=== PATIENT | female | born 1980 | race American Indian/Alaskan Native ===

== ENCOUNTER 2016-05-14 19:35 | Emergency (ER) | payer OTHER ==
[2016-05-14 20:11] VITALS: BP 96/61
[2016-05-14 20:54] LABS: Basophils % (Auto) 0.3 % (0.0-1.8); Eosinophils % (Auto) 0.2 % (0.0-4.3); Hematocrit 23.7 % (30.3-42.9); Mean Corpuscular HGB Conc 34 % (30-34); Mean Corpuscular Hemoglobin 29 pg (28-32); Mean Corpuscular Volume 85 fl (79-97); Platelet Count 251 K/mm3 (140-440); Red Blood Count 2.78 M/mm3 (3.65-5.03); Red Cell Distribution Width 18.8 % (13.2-15.2); White Blood Count 9.2 K/mm3 (4.5-11.0)
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
[2016-05-14 22:05] LABS: Alanine Aminotransferase 20 units/L (7-56); Albumin 3.5 g/dL (3.9-5); Alkaline Phosphatase 135 units/L (35-129); Bilirubin,Total < 0.2 mg/dL (0.1-1.2); Blood Urea Nitrogen 8 mg/dL (7-17); Calcium 8.5 mg/dL (8.4-10.2); Carbon Dioxide 21 mmol/L (22-30); Chloride 100.2 mmol/L (98-107); Glucose 86 mg/dL (65-100); Lipase 26 units/L (13-60); Potassium 4.5 mmol/L (3.6-5.0); Sodium 137 mmol/L (137-145)
[2016-05-14 22:13] LABS: Anion Gap 20 mmol/L
[2016-05-14 22:17] LABS: Bacteria,Urine 3+ /HPF (Negative); Bilirubin,Urine NEG (Negative); Blood,Urine LG (Negative); Ketones,Urine TR mg/dL (Negative); Leukocyte Esterase,Urine TR (Negative); Mucus,Urine 3+ /HPF; Nitrite,Urine NEG (Negative)
[2016-05-14 22:26] LABS: RBC,Urine > 182.0 /HPF (0.0-6.0)
== END 2016-05-14 21:57 | disposition home or self-care (01) ==
LOC: ED 19:35
DX: O03.9 Complete or unspecified spontaneous abortion without complication (principal); O99.331 Smoking (tobacco) complicating pregnancy, first trimester; F12.10 Cannabis abuse, uncomplicated; Z3A.14 14 weeks gestation of pregnancy
CPT/HCPCS: 36415; 80053; 81001; 81025; 83690; 85025; 86900; 86901; 88305

== ENCOUNTER 2016-05-20 21:23 | Inpatient (IN) | payer SELFPAY ==
[2016-05-20 23:51] LABS: Basophils % (Auto) 0.3 % (0.0-1.8); Eosinophils % (Auto) 0.2 % (0.0-4.3); Hematocrit 20.8 % (30.3-42.9); Hemoglobin 6.7 gm/dl (10.1-14.3); Mean Corpuscular HGB Conc 32 % (30-34); Mean Corpuscular Hemoglobin 28 pg (28-32); Mean Corpuscular Volume 87 fl (79-97); Platelet Count 371 K/mm3 (140-440); Red Blood Count 2.38 M/mm3 (3.65-5.03); White Blood Count 6.8 K/mm3 (4.5-11.0)
[2016-05-21 00:02] LABS: INR 1.07 (0.87-1.13)
[2016-05-21 00:03] LABS: Partial Thromboplastin Time 29.4 Sec. (24.2-36.6)
[2016-05-21 00:12] LABS: Anion Gap 19 mmol/L; Blood Urea Nitrogen 4 mg/dL (7-17); Calcium 8.7 mg/dL (8.4-10.2); Carbon Dioxide 25 mmol/L (22-30); Chloride 102.7 mmol/L (98-107); Glucose 93 mg/dL (65-100); Potassium 4.2 mmol/L (3.6-5.0); Sodium 142 mmol/L (137-145)
--- NOTE | 2016-05-21 01:06 | Ultrasound Report ---
FINAL REPORT PROCEDURE: US BREAST right LIMITED TECHNIQUE: eal-time sonography in multiple planes of the RIGHT breast was performed with image documentation; limited. HISTORY: PAIN/SWELLING, trauma COMPARISON: No prior studies are available for comparison. FINDINGS: RIGHT breast: Ultrasound evaluation of right breast shows some diffuse mixed echogenicity within breast tissue along the lateral aspect of the right breast. This is consistent with contusion of the soft tissues in this region. No formed abscess is seen. There is a area of fluid and some septations in the lower aspect of the areola, this measures 4.7 x 3.5 x 1.7 centimeters. This area could represent a resolving region of contusion/hematoma. Other etiologies are not entirely excluded. This patient has no previous breast imaging studies available for review. This patient will need further follow-up which should include close clinical observation. Further imaging of the right breast to include mammography and perhaps repeat ultrasound may be required for full workup of the right breast after resolution of the patient's soft tissue contusion. IMPRESSION: Soft tissue contusion involving the lateral aspect of the right breast is identified as discussed. There is a formed area of mixed echogenicity containing some fluid in the lower aspect of the areola which may represent resolving contusion/hematoma. Other etiologies are not excluded on the basis of this study. A plan for further imaging of the right breast should include mammography and perhaps repeat ultrasound after resolution of the patient's soft tissue contusion. ACR BI-RADS category 0 incomplete imaging of the right breast as described.
[2016-05-21] MEDS ORDERED: NACL 0.9% 500 ML 500 ML IV ONE ×2 (07:41→09:39)
[2016-05-21] MEDS ORDERED: ZOSYN/NS 3.375GM/50ML 50 ML IV ONE (07:43)
[2016-05-21] MEDS ORDERED: VANCOMYCIN PHARMACY TO DOSE IV SCH (08:00)
--- NOTE | 2016-05-21 08:10 | Emergency Department Report ---
ED General Adult HPI - General Chief complaint: Pain General Stated complaint: ENLARGED LEFT BREAST Time Seen by Provider: 05/21/16 07:11 Source: patient Mode of arrival: Ambulatory Limitations: No Limitations - History of Present Illness Initial comments: The patient was here on 05/14/2016 for an apparent complete . She was cared for by the emergency physician and released. She states that on 2016, she was sweeping in her living room when she got weak and dizzy and fell injuring her breast on the end of a coffee table. She denies any prolonged loss of consciousness. He states that she has been generally weak and does have some dyspnea on exertion only she is not dyspneic at rest. She complains of no chest pain. She denies fever and chills. She states that her breast has gotten somewhat red since her injury. She did not follow-up with an OB doctor. She had an approximate 7 week gestation. He is not complaining of subsequent vaginal bleeding or discharge. He has been chronically anemic in the past. -: Sudden, days(s) (the fifth) Location: chest (r breast) Radiation: non-radiation Quality: other (soreness) Consistency: now resolved Improves with: none Worsens with: none Associated Symptoms: weakness Treatments Prior to Arrival: none - Related Data Home Medications Medication Instructions Recorded Confirmed Last Taken No Known Home Medications [No 05/21/16 05/21/16 Unknown Reported Home Medications] Allergies Allergy/AdvReac Type Severity Reaction Status Date / Time No Known Allergies Allergy Verified 05/06/15 21:22 ED Review of Systems ROS: Stated complaint: ENLARGED LEFT BREAST Other details as noted in HPI Constitutional: other (presyncopal episode). denies: chills, fever Eyes: denies: eye pain, eye discharge, vision change ENT: denies: ear pain, throat pain Respiratory: denies: cough, shortness of breath, wheezing Cardiovascular: denies: chest pain, palpitations Endocrine: no symptoms reported Gastrointestinal: denies: abdominal pain, nausea, diarrhea Genitourinary: denies: urgency, dysuria, discharge Musculoskeletal: denies: back pain, joint swelling, arthralgia Skin: denies: rash, lesions Neurological: denies: headache, weakness, paresthesias Psychiatric: denies: anxiety, depression Hematological/Lymphatic: denies: easy bleeding, easy bruising ED Past Medical Hx - Past Medical History Previous Medical History?: Yes Additional medical history: MISSCARRIAGE - Surgical History Past Surgical History?: No - Social History Smoking Status: Current Every Day Smoker Substance Use Type: Alcohol - Medications Home Medications: Home Medications Medication Instructions Recorded Confirmed Last Taken Type No Known Home Medications [No 05/21/16 05/21/16 Unknown History Reported Home Medications] ED Physical Exam - General Limitations: No Limitations General appearance: alert, in no apparent distress - Head Head exam: Present: atraumatic, normocephalic - Eye Eye exam: Present: normal appearance, PERRL, EOMI, other (conjunctival pallor). Absent: scleral icterus - ENT ENT exam: Present: normal exam, mucous membranes moist - Neck Neck exam: Present: normal inspection. Absent: tenderness, meningismus - Respiratory Respiratory exam: Present: normal lung sounds bilaterally. Absent: respiratory distress - Cardiovascular Cardiovascular Exam: Present: regular rate, normal rhythm. Absent: systolic murmur, diastolic murmur, rubs, gallop - GI/Abdominal GI/Abdominal exam: Present: soft, normal bowel sounds. Absent: distended, tenderness, guarding, rebound, rigid - Extremities Exam Extremities exam: Present: normal inspection - Back Exam Back exam: Present: normal inspection - Neurological Exam Neurological exam: Present: alert, oriented X3, CN II-XII intact. Absent: motor sensory deficit - Psychiatric Psychiatric exam: Present: normal affect, normal mood - Skin Skin exam: Present: warm, dry, intact, ecchymosis (ecchymosis and erythema of the right breast. Apparent hematoma.). Absent: rash ED Course Vital Signs 05/20/16 05/21/16 05/21/16 23:05 02:07 06:37 Temperature 98.7 F 98.6 F 98.0 F Pulse Rate 115 H 115 H 101 H Respiratory 18 16 12 Rate Blood Pressure 122/75 Blood Pressure 111/67 105/72 [Left] O2 Sat by Pulse 100 100 100 Oximetry - Reevaluation(s) Reevaluation #1: The patient has symptomatic anemia with a near syncopal episode or syncope. I will transfuse her 1 unit of blood. Antibiotic coverage for her breast cellulitis/hematoma. Noted by Dr. Caal to the hospitalist service. He probably has some chronic liver disease as well. 02/11/17 08:13 ED Medical Decision Making - Lab Data Result diagrams: 05/20/16 23:40 05/20/16 23:40 Laboratory Results - last 24 hr 05/20/16 05/20/16 05/20/16 23:40 23:40 23:40 WBC 6.8 RBC 2.38 L Hgb 6.7 L Hct 20.8 L MCV 87 MCH 28 MCHC 32 RDW 19.0 H Plt Count 371 Lymph % (Auto) 30.4 [place] % (Auto) 10.3 H Eos % (Auto) 0.2 Baso % (Auto) 0.3 Lymph # 2.1 [place] # 0.7 Eos # 0.0 Baso # 0.0 Seg Neutrophils % 58.8 Seg Neutrophils # 4.0 PT 13.8 INR 1.07 APTT 29.4 Sodium 142 Potassium 4.2 Chloride 102.7 Carbon Dioxide 25 Anion Gap 19 BUN 4 L Creatinine 0.5 L Estimated GFR > 60 BUN/Creatinine Ratio 8.00 Glucose 93 Calcium 8.7 Critical care attestation.: If time is entered above; I have spent that time in minutes in the direct care of this critically ill patient, excluding procedure time. ED Disposition Clinical Impression: Symptomatic anemia, Near syncope, Cellulitis of breast, Breast hematoma Disposition: OP ADMITTED IP TO THIS HOSP Is pt being admited?: Yes Does the pt Need Aspirin: No Condition: Stable Referrals: PRIMARY CARE, [Primary Care Provider] - 3-5 Days Time of Disposition: 08:15
[2016-05-21 08:31] LABS: Alanine Aminotransferase 23 units/L (7-56); Albumin 3.5 g/dL (3.9-5); Alkaline Phosphatase 184 units/L (35-129); Bilirubin,Total < 0.2 mg/dL (0.1-1.2); Total Protein 7.1 g/dL (6.3-8.2)
[2016-05-21 08:32] LABS: Bilirubin,Direct < 0.2 mg/dL (0-0.2)
[2016-05-21] MEDS: ZOSYN/NS 4.5GM/100ML 4.5 GM/100 ML VIAL IV SCH ×2 (09:15→16:36)
--- NOTE | 2016-05-21 09:32 | History and Physical Report ---
History of Present Illness Date of examination: 05/21/16 History of present illness: The patient was here on 05/14/2016 for an apparent complete . She was cared for by the emergency physician and released. She states that on 2016, she was sweeping in her living room when she got weak and dizzy and fell injuring her breast on the end of a coffee table. She denies any prolonged loss of consciousness. He states that she has been generally weak and does have some dyspnea on exertion only she is not dyspneic at rest. She complains of no chest pain. She denies fever and chills. She states that her breast has gotten somewhat red since her injury. She did not follow-up with an OB doctor. She had an approximate 7 week gestation. He is not complaining of subsequent vaginal bleeding or discharge. He has been chronically anemic in the past. Past History Past Medical History: other (several miscarriages) Medications and Allergies Allergies Allergy/AdvReac Type Severity Reaction Status Date / Time No Known Allergies Allergy Verified 05/06/15 21:22 Home Medications Medication Instructions Recorded Confirmed Last Taken Type No Known Home Medications [No 05/21/16 05/21/16 Unknown History Reported Home Medications] Active Meds: Active Medications Piperacillin Sod/Tazobactam Sod (Zosyn/Ns 4.5gm/100ml) 4.5 gm in 100 mls @ 100 mls/hr IV Q8H [facility] Last Admin: 05/21/16 09:15 Dose: 100 mls/hr Vancomycin HCl (Vancomycin/Ns 1 Gm/250 Ml) 1 gm in 250 mls @ 166.667 mls/hr IV Q12H [facility] Vancomycin HCl (Vancomycin Pharmacy To Dose) 1 each IV PKCONSULT GEMA PRN Reason: Protocol Review of Systems Breasts: change in shape, swelling, pain Exam - Constitutional Vitals: Temp Pulse Resp BP Pulse Ox 98.0 F 101 H 12 105/72 100 05/21/16 06:37 05/21/16 06:37 05/21/16 06:37 05/21/16 06:37 05/21/16 06:37 General appearance: Present: mild distress - EENT Eyes: Present: PERRL, EOM intact ENT: hearing intact, clear oral mucosa - Neck Neck: Present: supple, normal ROM - Respiratory Respiratory effort: normal Respiratory: bilateral: CTA - Cardiovascular Rhythm: regular Heart Sounds: Present: S1 & S2 - Extremities Extremities: no ischemia, No edema - Abdominal General gastrointestinal: Present: soft, non-tender, non-distended, normal bowel sounds Female genitourinary: Present: other (right breast with swelling and bruising/ tenderness) Results - Labs CBC & Chem 7: 05/20/16 23:40 05/20/16 23:40 Labs: Laboratory Last Values WBC 6.8 K/mm3 (4.5-11.0) 05/20/16 23:40 RBC 2.38 M/mm3 (3.65-5.03) L 05/20/16 23:40 Hgb 6.7 gm/dl (10.1-14.3) L 05/20/16 23:40 Hct 20.8 % (30.3-42.9) L 05/20/16 23:40 MCV 87 fl (79-97) 05/20/16 23:40 MCH 28 pg (28-32) 05/20/16 23:40 MCHC 32 % (30-34) 05/20/16 23:40 RDW 19.0 % (13.2-15.2) H 05/20/16 23:40 Plt Count 371 K/mm3 (140-440) 05/20/16 23:40 Lymph % (Auto) 30.4 % (13.4-35.0) 05/20/16 23:40 [place] % (Auto) 10.3 % (0.0-7.3) H 05/20/16 23:40 Eos % (Auto) 0.2 % (0.0-4.3) 05/20/16 23:40 Baso % (Auto) 0.3 % (0.0-1.8) 05/20/16 23:40 Lymph # 2.1 K/mm3 (1.2-5.4) 05/20/16 23:40 [place] # 0.7 K/mm3 (0.0-0.8) 05/20/16 23:40 Eos # 0.0 K/mm3 (0.0-0.4) 05/20/16 23:40 Baso # 0.0 K/mm3 (0.0-0.1) 05/20/16 23:40 Seg Neutrophils % 58.8 % (40.0-70.0) 05/20/16 23:40 Seg Neutrophils # 4.0 K/mm3 (1.8-7.7) 05/20/16 23:40 PT 13.8 Sec. (12.2-14.9) 05/20/16 23:40 INR 1.07 (0.87-1.13) 05/20/16 23:40 APTT 29.4 Sec. (24.2-36.6) 05/20/16 23:40 Sodium 142 mmol/L (137-145) 05/20/16 23:40 Potassium 4.2 mmol/L (3.6-5.0) 05/20/16 23:40 Chloride 102.7 mmol/L (98-107) 05/20/16 23:40 Carbon Dioxide 25 mmol/L (22-30) 05/20/16 23:40 Anion Gap 19 mmol/L 05/20/16 23:40 BUN 4 mg/dL (7-17) L 05/20/16 23:40 Creatinine 0.5 mg/dL (0.7-1.2) L 05/20/16 23:40 Estimated GFR > 60 ml/min 05/20/16 23:40 BUN/Creatinine Ratio 8.00 % 05/20/16 23:40 Glucose 93 mg/dL (65-100) 05/20/16 23:40 Lactic Acid 2.3 mmol/L (0.7-2.0) H* 05/21/16 07:52 Calcium 8.7 mg/dL (8.4-10.2) 05/20/16 23:40 Total Bilirubin < 0.2 mg/dL (0.1-1.2) 05/21/16 07:52 Direct Bilirubin < 0.2 mg/dL (0-0.2) 05/21/16 07:52 Indirect Bilirubin 0.0 mg/dL 05/21/16 07:52 AST 52 units/L (5-40) H 05/21/16 07:52 ALT 23 units/L (7-56) 05/21/16 07:52 Alkaline Phosphatase 184 units/L (35-129) H 05/21/16 07:52 Total Protein 7.1 g/dL (6.3-8.2) 05/21/16 07:52 Albumin 3.5 g/dL (3.9-5) L 05/21/16 07:52 Albumin/Globulin Ratio 1.0 % 05/21/16 07:52 Assessment and Plan - Patient Problems (1) Breast hematoma Current Visit: Yes Status: Acute Plan to address problem: Patient had a syncopal episode and fell flat on right breast. Patient sustained no breast hematoma with marked swelling. This is been over a week so we will try heat to the breast at this time. Continue to follow clinically. Ultrasound of breath showed large hematoma (2) Cellulitis of breast Current Visit: Yes Status: Acute Plan to address problem: We'll start IV antibiotics (3) Symptomatic anemia Current Visit: Yes Status: Acute Plan to address problem: Symptomatic anemia possibly caused syncopal episode. We will transfuse 2 units of packed red cells and follow clinically. Patient had evacuation of the uterus by the ER physician. Nonviable fetus was found during evacuation (4) Near syncope Current Visit: Yes Status: Acute Plan to address problem: Possibly due to symptomatic anemia. Patient had evacuation of her uterus a few days prior to the syncopal episode by the ER physician. Patient had a nonviable fetus in the uterus for which it was evacuated
[2016-05-21] MEDS ORDERED: TYLENOL PO PRN (09:34)
[2016-05-21] MEDS ORDERED: MILK OF MAGNESIA PO PRN (09:34)
[2016-05-21] MEDS ORDERED: ZOFRAN IV PRN (09:34)
[2016-05-21] MEDS ORDERED: MORPHINE IV PRN (09:34)
[2016-05-21] MEDS ORDERED: DULCOLAX PR PRN (09:34)
[2016-05-21] MEDS: VANCOMYCIN/NS 1 GM/250 ML 1 GM/250 ML BAG IV SCH ×2 (10:30→21:39)
[2016-05-21] MEDS ORDERED: NACL 0.9% 1000 ML 1,000 ML ONE ×2 (12:09→15:24)
[2016-05-21] MEDS: NACL 0.9% 1000 ML 1,000 ML IV SCH (14:56)
[2016-05-21] MEDS ORDERED: ATIVAN IV PRN (19:02)
--- NOTE | 2016-05-21 23:53 | Admit Criteria Form ---
Admission Criteria Documentation: ANEMIA, IRON DEFICIENCY OR UNSPECIFIED Clinical Indications for Inpatient Care (Place 'X' for any and all applicable criteria): Admission is indicated for ANY ONE of the following(1)(2)(3)(4)(5)(6)(7): [X] I. Inpatient admission required rather than observation care (Also use Anemia, Iron Deficiency or Unspecified: Observation Care guideline as appropriate) because of ANY ONE of the following: [] a) Hemodynamic instability that is severe or persistent [] b) Active bleeding that cannot be rapidly controlled [] c) CVS symptoms (i.e., dyspnea, chest pain, heart failure) that are severe or persistent [X] d) Neurologic symptoms (i.e., cognitive impairment, recurrent syncope or near syncope) that are severe or persistent [] e) Cardiac arrhythmias of immediate concern [] f) Acute peripheral ischemia (e.g., pulseless, cool, mottled, or cyanotic extremity) [] g) High-risk low platelet count [] h) Acute renal failure [] i) Ongoing transfusion for blood loss (greater than 2 units) [] j) IV fluid to replace significant ongoing (eg, >24 hours) losses (> 3 L/m2 per day) [] k) Pulmonary artery catheter monitoring [] l) Supplemental oxygen or respiratory treatments for over 24 hours that are performable only in acute inpatient setting [] m) Immediate inpatient surgery [X] n) Other condition, treatment or monitoring requiring inpatient admission [] II Active massive hemorrhage [] III. Active hemolysis with rapidly progressive anemia [A](6) Extended stay beyond goal length of stay may be needed for (17)(18) []a) Diagnosed cause of anemia requiring longer hospitalization (eg, active GI bleeding, immune hemolysis requiring electrophoresis, complications of malignancy requiring acute care []b) Continued emergent anemia indicators (23) []c) Transfusion reactions []d) Associated leukopenia or thrombocytopenia needing inpatient care []e) Active comorbidities (eg, renal failure, heart failure) The original [facility] Care Guidelines content created by [facility] Emergency Department Guidelines has been revised. The portions of the content which have been revised are identified through the use of italic text or in bold. [facility] Emergency Department Guidelines has neither reviewed nor approved the modified material. All other unmodified content is copyright [facility] Emergency Department Guidelines. Please see references footnoted in the original [facility] edition 2016 Admission Criteria Met: Yes
[2016-05-22] MEDS: ZOSYN/NS 4.5GM/100ML 4.5 GM/100 ML VIAL IV SCH ×3 (00:56→16:42)
[2016-05-22] MEDS ORDERED: NACL 0.9% 500 ML 500 ML IV SCH (01:00)
[2016-05-22] MEDS: PERCOCET 5/325 PO PRN ×3 (01:23→17:15)
--- NOTE | 2016-05-22 08:06 | Progress Note ---
Assessment and Plan Assessment and plan: Symptomatic anemia with near-syncope - Patient has recently - Transfused with 2 units of blood, will transfused a third one - We will check CBC after that Right breast hematoma - We will follow clinically - Patient is covered with IV vancomycin and Zosyn for cellulitis - Blood cultures pending Prophylaxis - SCD Disposition - We'll continue inpatient care History Interval history: Patient was seen and evaluated, she is going to get her 3rd unit of blood soon and will check her H/H after that. Patient is complaining weakness. Hospitalist Physical - Physical exam Narrative exam: Not in cardiopulmonary distress. The patient appeared well nourished and normally developed. Vital signs as documented. Head exam is unremarkable. No scleral icterus, pale conjunctiva . Neck is without jugular venous distension, thyromegaly, or carotid bruits. Breast swelling and tenderness of the right breast. Lungs are clear to auscultation. Cardiac exam reveals regular rate and Rhythm. First and second heart sounds normal. No murmurs, rubs or gallops. Abdominal exam reveals normal bowel sounds, no masses, no organomegaly and no aortic enlargement. Extremities are nonedematous and both femoral and pedal pulses are normal. [employer]: Alert and oriented 3. No focal weakness. - Constitutional Vitals: Temp Pulse Resp BP Pulse Ox 98.0 F 117 H 18 112/68 97 05/22/16 06:55 05/22/16 06:55 05/22/16 06:55 05/22/16 06:55 05/22/16 02:12 General appearance: Present: mild distress Results - Labs CBC & Chem 7: 05/20/16 23:40 05/20/16 23:40 Labs: Laboratory Last Values WBC 6.8 K/mm3 (4.5-11.0) 05/20/16 23:40 RBC 2.38 M/mm3 (3.65-5.03) L 05/20/16 23:40 Hgb 6.7 gm/dl (10.1-14.3) L 05/20/16 23:40 Hct 20.8 % (30.3-42.9) L 05/20/16 23:40 MCV 87 fl (79-97) 05/20/16 23:40 MCH 28 pg (28-32) 05/20/16 23:40 MCHC 32 % (30-34) 05/20/16 23:40 RDW 19.0 % (13.2-15.2) H 05/20/16 23:40 Plt Count 371 K/mm3 (140-440) 05/20/16 23:40 Lymph % (Auto) 30.4 % (13.4-35.0) 05/20/16 23:40 Sac % (Auto) 10.3 % (0.0-7.3) H 05/20/16 23:40 Eos % (Auto) 0.2 % (0.0-4.3) 05/20/16 23:40 Baso % (Auto) 0.3 % (0.0-1.8) 05/20/16 23:40 Lymph # 2.1 K/mm3 (1.2-5.4) 05/20/16 23:40 Sac # 0.7 K/mm3 (0.0-0.8) 05/20/16 23:40 Eos # 0.0 K/mm3 (0.0-0.4) 05/20/16 23:40 Baso # 0.0 K/mm3 (0.0-0.1) 05/20/16 23:40 Seg Neutrophils % 58.8 % (40.0-70.0) 05/20/16 23:40 Seg Neutrophils # 4.0 K/mm3 (1.8-7.7) 05/20/16 23:40 PT 13.8 Sec. (12.2-14.9) 05/20/16 23:40 INR 1.07 (0.87-1.13) 05/20/16 23:40 APTT 29.4 Sec. (24.2-36.6) 05/20/16 23:40 Sodium 142 mmol/L (137-145) 05/20/16 23:40 Potassium 4.2 mmol/L (3.6-5.0) 05/20/16 23:40 Chloride 102.7 mmol/L (98-107) 05/20/16 23:40 Carbon Dioxide 25 mmol/L (22-30) 05/20/16 23:40 Anion Gap 19 mmol/L 05/20/16 23:40 BUN 4 mg/dL (7-17) L 05/20/16 23:40 Creatinine 0.5 mg/dL (0.7-1.2) L 05/20/16 23:40 Estimated GFR > 60 ml/min 05/20/16 23:40 BUN/Creatinine Ratio 8.00 % 05/20/16 23:40 Glucose 93 mg/dL (65-100) 05/20/16 23:40 Lactic Acid 2.3 mmol/L (0.7-2.0) H* 05/21/16 07:52 Calcium 8.7 mg/dL (8.4-10.2) 05/20/16 23:40 Total Bilirubin < 0.2 mg/dL (0.1-1.2) 05/21/16 07:52 Direct Bilirubin < 0.2 mg/dL (0-0.2) 05/21/16 07:52 Indirect Bilirubin 0.0 mg/dL 05/21/16 07:52 AST 52 units/L (5-40) H 05/21/16 07:52 ALT 23 units/L (7-56) 05/21/16 07:52 Alkaline Phosphatase 184 units/L (35-129) H 05/21/16 07:52 Total Protein 7.1 g/dL (6.3-8.2) 05/21/16 07:52 Albumin 3.5 g/dL (3.9-5) L 05/21/16 07:52 Albumin/Globulin Ratio 1.0 % 05/21/16 07:52 Blood Type A POSITIVE 05/21/16 07:52 Antibody Screen Negative 05/21/16 07:52 Crossmatch See Detail 05/21/16 07:52 - Imaging and Cardiology Imaging and Cardiology: Breast ultrasound showed hematoma.
[2016-05-22 09:10] LABS: Bacteria,Urine 1+ /HPF (Negative); Bilirubin,Urine NEG (Negative); Blood,Urine LG (Negative); Ketones,Urine NEG (Negative); Leukocyte Esterase,Urine LG (Negative); Mucus,Urine FEW /HPF; Nitrite,Urine NEG (Negative); Protein,Urine <15 mg/dL mg/dL (Negative); Urobilinogen,Urine < 2.0 mg/dL (<2.0)
[2016-05-22] MEDS: VANCOMYCIN/NS 1 GM/250 ML 1 GM/250 ML BAG IV SCH ×2 (10:30→21:17)
[2016-05-22 15:18] LABS: Hematocrit 25.8 % (30.3-42.9); Hemoglobin 8.6 gm/dl (10.1-14.3); Mean Corpuscular HGB Conc 33 % (30-34); Mean Corpuscular Hemoglobin 29 pg (28-32); Mean Corpuscular Volume 88 fl (79-97); Platelet Count 328 K/mm3 (140-440); Red Blood Count 2.94 M/mm3 (3.65-5.03); Red Cell Distribution Width 17.6 % (13.2-15.2); White Blood Count 6.9 K/mm3 (4.5-11.0)
[2016-05-22 16:00] LABS: Alanine Aminotransferase 16 units/L (7-56); Albumin 2.9 g/dL (3.9-5); Albumin/Globulin Ratio 0.9 %; Alkaline Phosphatase 181 units/L (35-129); Anion Gap 20 mmol/L; BUN/Creatinine Ratio 14.28; Bilirubin,Total 0.2 mg/dL (0.1-1.2); Blood Urea Nitrogen 10 mg/dL (7-17); Calcium 7.7 mg/dL (8.4-10.2); Carbon Dioxide 19 mmol/L (22-30); Chloride 101.8 mmol/L (98-107); Glucose 98 mg/dL (65-100); Potassium 3.9 mmol/L (3.6-5.0); Sodium 137 mmol/L (137-145); Total Protein 6.2 g/dL (6.3-8.2)
[2016-05-22 16:06] LABS: Blastocytes % (Manual) 0 %; Eosinophils % (Manual) 0 % (0.0-4.3)
[2016-05-22 16:08] LABS: Anisocytosis 1+; Hypochromasia 1+; Ovalocytes 1+; Poikilocytosis Few
[2016-05-22 16:09] LABS: Diff Status Complete; Microcytosis 1+; Platelet Estimate Consistent w Auto; Polychromasia 1+
[2016-05-22 18:13] VITALS: BP 111/73
[2016-05-22] MEDS: NACL 0.9% 1000 ML 1,000 ML IV SCH (21:18)
--- NOTE | 2016-05-23 10:27 | Event Note ---
Date: 05/23/16 I have seen and taking care of the patient and was getting blood transfusion and IV antibiotics. when I cam this morning the patient is not here and there is no Nursing documentation what happened. I didn't discharged the patient.
== END 2016-05-22 22:37 | disposition home or self-care (01) | DRG 605 ==
LOC: ED 21:23 → 3A 05-21 11:48 → 2B-SURG 05-21 13:54
PROVIDERS: ADMIT Internal Medicine; ATTEND Internal Medicine
PROC: 30233N1 Transfusion of Nonautologous Red Blood Cells into Peripheral Vein, Percutaneous Approach (ICD-10-PCS; principal; 2016-05-21)
DX: S20.01XA Contusion of right breast, initial encounter (principal); D62 Acute posthemorrhagic anemia; R55 Syncope and collapse; N64.89 Other specified disorders of breast; D64.9 Anemia, unspecified; N61.0 Mastitis without abscess; X58.XXXA Exposure to other specified factors, initial encounter; Y93.89 Activity, other specified; Y92.89 Other specified places as the place of occurrence of the external cause; Y99.8 Other external cause status
CPT/HCPCS: 36415; 80048; 80053; 80074; 81001; 82140; 85007; 85025; 85610; 85730; 86850; 86900; 86901; 86920; 87040; 99406; J2060; J2543; J3370; J7030; J7040; P9016